=== PATIENT | male | born 1960 | race Caucasian/White ===

== ENCOUNTER 2024-03-25 14:41 | Inpatient (IN) | payer OTHER ==
[2024-03-25] MEDS ORDERED: HYDROcodone/Acetaminophen 5/325 mg Tablet ONE (16:29)
[2024-03-25 17:06] LABS: #Basophils 0.05 10x3/uL (0.0-0.2); #Eosinophils 0.23 10x3/uL (0.0-0.5); #Monocytes 0.98 10x3/uL (0.0-1.1); #Neutrophils 6.23 10x3/uL (1.5-8.4); %Basophils 0.6 % (0.0-2.0); %Eosinophils 2.6 % (0.0-6.0); %Lymphocytes 16.5 % (18.0-47.0); %Monocytes 10.9 % (0.0-10.0); %Neutrophils 69.2 % (40.0-75.0); Hemoglobin 11.9 g/dL (13.5-17.5); Mean Corpuscular Hemoglobin 30.4 pg (27.0-33.0); Mean Platelet Volume 8.5 fL (7.4-10.4); Platelet Count 246 10x3/uL (150-450); RBC Distribution Width 12.5 % (11.5-14.5); Red Blood Cell (RBC) Count 3.91 10x6/uL (4.32-5.72)
[2024-03-25 17:31] LABS: ALT (SGPT) 114 U/L (8-55); AST (SGOT) 59 U/L (5-34); Albumin 3.3 g/dL (3.4-4.8); Alkaline Phosphatase 84 U/L (40-110); Anion Gap 13 mmol/L (10-20); BUN (Urea Nitrogen) 28 mg/dL (8.4-25.7); Bilirubin, Total 0.3 mg/dL (0.2-1.2); Calc. Creatinine Clearance 0 mL/min (70-130); Calcium 9.1 mg/dL (7.8-10.44); Carbon Dioxide 25 mmol/L (23-31); Chloride 102 mmol/L (98-107); Estimated GFR 60; Globulin 3.4 g/dL (2.4-3.5); Glucose 118 mg/dL (80-115); Potassium 3.8 mmol/L (3.5-5.1); Protein, Total 6.7 g/dL (5.8-8.1); Sodium 136 mmol/L (136-145)
[2024-03-25] MEDS ORDERED: Cefepime 2 GM VIAL ONE (18:09)
[2024-03-25] MEDS ORDERED: traMADol HCl 50 MG TAB PO PRN (19:49)
[2024-03-25] MEDS ORDERED: HYDROcodone/Acetaminophen 7.5/325 mg Tablet PO PRN (19:49)
[2024-03-25 20:05] VITALS: BMI 28.8
[2024-03-25] MEDS: VANCOMYCIN 1.75 GM/350 ML BAG 1.75 GM in Premix 1 BAG IVPB SCH (20:22)
[2024-03-25] MEDS: hydrALAZINE 10 MG TAB PO SCH (21:33)
[2024-03-25] MEDS: Atorvastatin Calcium 20 MG TAB PO SCH (21:33)
[2024-03-25] MEDS: Amlodipine 5 MG TAB PO SCH (21:34)
[2024-03-26] MEDS: FLU (Fluarix Triv) TS24-25(6MOS UP)/PF 45 MCG/0.5 ML Syringe IM ONE (04:03)
[2024-03-26 04:58] LABS: #Basophils 0.05 10x3/uL (0.0-0.2); #Eosinophils 0.28 10x3/uL (0.0-0.5); #Neutrophils 5.22 10x3/uL (1.5-8.4); %Basophils 0.6 % (0.0-2.0); %Eosinophils 3.3 % (0.0-6.0); %Lymphocytes 22.1 % (18.0-47.0); %Monocytes 12.8 % (0.0-10.0); %Neutrophils 60.8 % (40.0-75.0); Hematocrit 34.9 % (38.8-50.0); Hemoglobin 11.6 g/dL (13.5-17.5); Mean Corpuscular HGB CONC 33.2 g/dL (32.0-36.0); Mean Corpuscular Hemoglobin 29.2 pg (27.0-33.0); Mean Corpuscular Volume 87.9 fL (81.2-95.1); Mean Platelet Volume 8.5 fL (7.4-10.4); Platelet Count 255 10x3/uL (150-450); RBC Distribution Width 12.2 % (11.5-14.5); Red Blood Cell (RBC) Count 3.97 10x6/uL (4.32-5.72); White Blood Cell (WBC) Count 8.6 10x3/uL (3.5-10.5)
[2024-03-26 05:04] LABS: Vancomycin, Random 13.6 ug/mL (See Comment)
[2024-03-26 05:07] LABS: Anion Gap 13 mmol/L (10-20); BUN (Urea Nitrogen) 25 mg/dL (8.4-25.7); Calc. Creatinine Clearance 65 mL/min (70-130); Calcium 8.9 mg/dL (7.8-10.44); Carbon Dioxide 24 mmol/L (23-31); Chloride 104 mmol/L (98-107); Estimated GFR 55; Glucose 101 mg/dL (80-115); Magnesium 2.4 mg/dL (1.6-2.6); Potassium 4.1 mmol/L (3.5-5.1); Sodium 137 mmol/L (136-145)
[2024-03-26] MEDS: Acetaminophen 325 MG TAB PO PRN (05:40)
[2024-03-26] MEDS: cefTRIAXone\\ROCEPHIN 2 GM in Sodium Chloride 0.9% 100 ML IVPB SCH (05:41)
[2024-03-26] MEDS ORDERED: cefTRIAXone Sodium 2,000 MG in Syringe 0 ML IVPB SCH (06:30)
[2024-03-26] MEDS ORDERED: Vancomycin (BATCH) 1.5 GM/300 ML BAG IVPB SCH (08:00)
[2024-03-26] MEDS ORDERED: Losartan 25 MG TAB PO SCH (09:00)
[2024-03-26] MEDS: VANCOMYCIN 1.75 GM/350 ML BAG 1.75 GM in Premix 1 BAG IVPB SCH (10:12)
[2024-03-26] MEDS: Enoxaparin 40 MG (0.4 mL) SYRINGE SC SCH (10:12)
[2024-03-26] MEDS: Sodium Chloride 0.9% 1,000 ML IV SCH (10:13)
[2024-03-26] MEDS: Senokot S 8.6-50 MG TAB PO SCH (20:58)
[2024-03-26] MEDS: Milk Of Magnesia 30 ML UDCUP PO SCH (20:58)
[2024-03-27 03:45] LABS: #Basophils 0.07 10x3/uL (0.0-0.2); #Eosinophils 0.41 10x3/uL (0.0-0.5); #Monocytes 1.08 10x3/uL (0.0-1.1); #Neutrophils 5.01 10x3/uL (1.5-8.4); %Basophils 0.8 % (0.0-2.0); %Eosinophils 4.6 % (0.0-6.0); %Lymphocytes 26.5 % (18.0-47.0); %Neutrophils 55.8 % (40.0-75.0); Hematocrit 32.2 % (38.8-50.0); Hemoglobin 10.9 g/dL (13.5-17.5); Mean Corpuscular HGB CONC 33.9 g/dL (32.0-36.0); Mean Corpuscular Hemoglobin 29.7 pg (27.0-33.0); Mean Corpuscular Volume 87.7 fL (81.2-95.1); Mean Platelet Volume 8.8 fL (7.4-10.4); Platelet Count 248 10x3/uL (150-450); RBC Distribution Width 12.3 % (11.5-14.5); Red Blood Cell (RBC) Count 3.67 10x6/uL (4.32-5.72)
[2024-03-27 03:49] LABS: Vancomycin, Random 11.1 ug/mL (See Comment)
[2024-03-27 03:50] LABS: Anion Gap 13 mmol/L (10-20); BUN (Urea Nitrogen) 23 mg/dL (8.4-25.7); Calc. Creatinine Clearance 83 mL/min (70-130); Calcium 8.5 mg/dL (7.8-10.44); Carbon Dioxide 24 mmol/L (23-31); Chloride 108 mmol/L (98-107); Estimated GFR 73; Glucose 98 mg/dL (80-115); Sodium 141 mmol/L (136-145)
[2024-03-27 08:14] VITALS: BP 136/79; TEMP 98.1
[2024-03-27] MEDS: Vancomycin 1 GM in Sodium Chloride 0.9% 250 ML 250 ML IVPB SCH (08:54)
[2024-03-27] MEDS ORDERED: Vancomycin 1.5 GRAM/300 ML BAG 1.5 GM in Premix 1 BAG IVPB SCH (09:00)
[2024-03-27] MEDS ORDERED: Vancomycin 1 GM in Premix 1 BAG IVPB SCH (09:00)
== END 2024-03-27 10:30 | disposition still patient (30) | DRG 603 ==
LOC: CSHERS 14:41 → CSHTELE 18:33 → OBSVTOIN 03-26 10:27
PROVIDERS: ADMIT Internal Medicine; ATTEND Internal Medicine
DX: L03.115 Cellulitis of right lower limb (principal); N17.9 Acute kidney failure, unspecified; I10 Essential (primary) hypertension; E78.5 Hyperlipidemia, unspecified; N40.0 Benign prostatic hyperplasia without lower urinary tract symptoms; Z96.651 Presence of right artificial knee joint; Z90.49 Acquired absence of other specified parts of digestive tract; Z79.899 Other long term (current) drug therapy
CPT/HCPCS: 36415; 80048; 80053; 80202; 83605; 83735; 85025; 86140; 87040; 96372; 96374; 96375; 96376; G0378; J0692; J0696; J1650; J3370; J7030; J7050